=== PATIENT | female | born 1985 | race Two or more races ===

== ENCOUNTER 2017-12-31 09:24 | Emergency (ER) | payer OTHER ==
[2017-12-31 09:27] VITALS: BMI 26.4
[2017-12-31] MEDS ORDERED: SODIUM CHLORIDE 1,000 ML IV STA (09:56)
[2017-12-31] MEDS ORDERED: KETOROLAC TROMETHAMINE 30 MG/1 ML VIAL IVPUSH ONE (09:56)
[2017-12-31] MEDS ORDERED: ONDANSETRON 4 MG/2 ML VIAL IVPUSH ONE (09:56)
[2017-12-31] MEDS ORDERED: MECLIZINE HCL 25 MG TABLET (FP) PO ONE (09:56)
[2017-12-31] MEDS ORDERED: ONDANSETRON 4 MG/2 ML VIAL ONE ×2 (10:09→10:10)
[2017-12-31] MEDS ORDERED: MECLIZINE HCL 25 MG TABLET (FP) ONE (10:09)
[2017-12-31] MEDS ORDERED: KETOROLAC TROMETHAMINE 30 MG/1 ML VIAL ONE (10:09)
[2017-12-31 10:37] LABS: BASO % 0.9 % (0-2.0); EOS % 0.2 % (0-4.5); HEMATOCRIT 34.5 % (32.4-45.2); HEMOGLOBIN 11.7 GM/dL (10.7-15.3); LYMPH % 14.7 % (8-40); MCH 29.7 pg (25.7-33.7); MCHC 33.9 g/dl (32.0-36.0); MEAN CELL VOLUME 87.4 fl (80-96); MEAN PLT VOLUME 8.1 fl (7.5-11.1); MONO % 4.8 % (3.8-10.2); NEUT % 79.4 % (42.8-82.8); PLATELET COUNT 233 K/MM3 (134-434); RBC 3.95 M/mm3 (3.60-5.2); RDW 16.5 % (11.6-15.6); WHITE BLOOD COUNT 3.5 K/mm3 (4.0-10.0)
[2017-12-31 10:44] LABS: HCG,QUALITATIVE URINE NEGATIVE
[2017-12-31 10:47] LABS: URINE APPEARANCE CLEAR; URINE BILIRUBIN NEGATIVE (<2.0 mg/dL); URINE COLOR STRAW; URINE GLUCOSE (UA) NEGATIVE (NEGATIVE); URINE KETONE NEGATIVE (NEGATIVE); URINE LEUK ESTERASE NEGATIVE (NEGATIVE); URINE NITRITE NEGATIVE (NEGATIVE); URINE PROTEIN NEGATIVE (NEGATIVE); URINE UROBILINOGEN NEGATIVE mg/dL (0.2-1.0)
[2017-12-31 10:49] LABS: EPI CELLS RARE /HPF (FEW); URINE MUCUS RARE
[2017-12-31 10:52] LABS: ALK PHOS 84 U/L (45-117); ANION GAP 9 (8-16); BILIRUBIN,TOTAL 0.4 mg/dL (0.2-1.0); BLOOD UREA NITROGEN 12 mg/dL (7-18); CALCIUM 8.6 mg/dL (8.5-10.1); CHLORIDE 106 mmol/L (98-107); CO2 23 mmol/L (21-32); CREATININE 0.7 mg/dL (0.55-1.02); GLUCOSE,RANDOM 87 mg/dL (74-106); SGOT/AST 25 U/L (15-37); SGPT/ALT 22 U/L (12-78); SODIUM 138 mmol/L (136-145); TOT PROT 8.5 g/dl (6.4-8.2)
--- NOTE | 2017-12-31 10:57 | PDOC ---
History of Present Illness - General Chief Complaint: Headache Stated Complaint: HEADACHE Time Seen by Provider: 12/31/17 09:49 History Source: Patient Exam Limitations: No Limitations - History of Present Illness Initial Comments: 12/31/17 11:02 32-year-old female with no past medical history presents to the ED with complaints of intermittent dizziness for the past 2 days along with occipital throbbing pressure for the past 2 days associated with nausea without vomiting. Patient also complaining of photosensitivity without photosensitivity. Patient states has taken Tylenol and Motrin with good effect but since it returns decided come to the ER for further evaluation. Patient also states about 1 month ago fell down a flight of steps without striking her head and unsure if this triggered her symptoms. Patient denies visual changes, neck pain chest pain , shortness of breath, abdominal pain, or inability to eat. Timing/Duration: reports: waxing and waning Severity: Yes: moderate Associated Symptoms: reports: nausea/vomiting, other Past History - Travel Traveled outside of the country in the last 30 days: No - Past Medical History Allergies/Adverse Reactions: Allergies Allergy/AdvReac Type Severity Reaction Status Date / Time No Known Allergies Allergy Verified 12/31/17 09:25 Home Medications: Ambulatory Orders Cyclobenzaprine HCl [Flexeril 10 mg] 10 mg PO BID #60 tablet 12/09/17 Ibuprofen [Motrin -] 600 mg PO QID #30 tablet 12/09/17 COPD: No - Suicide/Smoking/Psychosocial Hx Smoking History: Never smoked Have you smoked in the past 12 months: No Information on smoking cessation initiated: No Hx Alcohol Use: No Drug/Substance Use Hx: No Substance Use Type: None Patient Lives Alone: No Lives with/in: spouse/SO Neuro Specific PMHX - Complaint Specific PMHX Migraine: No Review of Systems - Review of Systems Able to Perform ROS?: No Constitutional: No: Symptoms Reported HEENTM: No: Symptoms Reported Respiratory: No: Symptoms reported Cardiac (ROS): Yes: Lightheadedness ABD/GI: Yes: Nausea : No: Symptoms Reported Musculoskeletal: No: Symptoms Reported Integumentary: No: Symptoms Reported Neurological: Yes: Headache, Dizziness Hematologic/Lymphatic: No: Symptoms Reported *Physical Exam - Vital Signs Last Vital Signs Temp Pulse Resp BP Pulse Ox 99.4 F 107 H 18 108/85 100 12/31/17 09:26 12/31/17 09:26 12/31/17 09:26 12/31/17 09:26 12/31/17 09:26 - Physical Exam General Appearance: Yes: Nourished, Appropriately Dressed. No: Apparent Distress HEENT: positive: EOMI, SUNNY, TMs Normal, Pharynx Normal Neck: positive: Tender (C1), Supple Respiratory/Chest: positive: Lungs Clear, Normal Breath Sounds. negative: Respiratory Distress, Accessory Muscle Use Cardiovascular: positive: Regular Rhythm, Regular Rate (89 radial). negative: Murmur Vascular Pulses: Dorsalis-Pedis (R): 2+, Doralis-Pedis (L): 2+ Gastrointestinal/Abdominal: positive: Normal Bowel Sounds. negative: Soft, Tenderness Extremity: positive: Normal Capillary Refill Integumentary: positive: Normal Color, Warm, Moist Neurologic: positive: alterations manager II-XII NML intact, Motor Strength 5/5 (ambulatory), Other (negative Hallpike but complaining of increased dizzineness head movement) . negative: Sensory Deficit ED Treatment Course - RADIOLOGY Radiology Studies Ordered: Category Date Time Status CERVICAL SPINE CT W/O CONTR [CT] Stat CT Scan 12/31/17 09:[address] WITHOUT CONTRAST [CT] Stat CT Scan 12/31/17 09:56 Ordered Medical Decision Making - Medical Decision Making 12/31/17 11:05 Patient with complaints of occipital throbbing pressure dizziness and mild nausea for the past 3 days moderately relieved with Motrin Tylenol. Patient states fell down approximately 7 steps a month ago unsure if symptoms were triggered from the fall. Patient said did not hit her head 1 month ago. Patient exam with complaints of dizziness with standing and wall performing Hallpike maneuver. Patient had no acute findings on exam. I will rule out an intracranial pathology, electrolyte abnormality, cervical fracture secondary to C1 tenderness, and will treat for vertigo based on subjective complaints and physical findings 12/31/17 11:48 Laboratory Tests 12/31/17 12/31/17 12/31/17 09:34 10:24 10:24 WBC 3.5 L Hgb 11.7 Hct 34.5 Plt Count 233 Absolute Neuts (auto) 2.8 Neutrophils % 79.4 Sodium 138 Potassium 4.0 Chloride 106 Carbon Dioxide 23 Anion Gap 9 BUN 12 Creatinine 0.7 Random Glucose 87 Calcium 8.6 Magnesium 2.0 Total Bilirubin 0.4 AST 25 Alkaline Phosphatase 84 Total Protein 8.5 H Albumin 4.0 Urine Blood 1+ H Urine Nitrite Negative Ur Leukocyte Esterase Negative Urine WBC (Auto) <1 Urine RBC (Auto) 7 Urine HCG, Qual Negative 12/31/17 11:[address] negative for acute findings. Cervical CT shows no fracture identified. As on radiograph performs 12/09/2017 there was a reversal of the cervical lordosis probably secondary to a paravertebral muscle spasm. There is equivocal visualization of subtle edema and C3-C4 and C4-C5 interspinous spaces which could be in the base of injury involving the interspinous ligaments. MRI is recommended nonemergent versus emergent. Patient states is feeling much better and was discharged home to follow-up with neurology and her primary care doctor *DC/Admit/Observation/Transfer Diagnosis at time of Disposition: Headache Qualifiers: Headache type: unspecified Headache chronicity pattern: acute headache Intractability: not intractable Qualified Code(s): R51 - Headache - Discharge Dispostion Disposition: HOME Condition at time of disposition: Improved - Referrals Referrals: Chan Celis MD [Staff Physician] - - Patient Instructions Printed Discharge Instructions: DI for Hormonal and Tension Headaches Additional Instructions: Take Motrin 600 mg every 8 hours for discomfort. Please drink plenty of fluids and stay well-hydrated. Avoid getting up from lying to standing position. follow-up with Referred neurologist - Post Discharge Activity
[2017-12-31 12:00] VITALS: BP 100/66; PULSE 79; TEMP 98
== END 2017-12-31 12:53 | disposition home or self-care (01) ==
LOC: JER 09:24
PROC: 3E033GC Introduction of Other Therapeutic Substance into Peripheral Vein, Percutaneous Approach (ICD-10-PCS; principal; 2017-12-31)
PROC: 3E0333Z Introduction of Anti-inflammatory into Peripheral Vein, Percutaneous Approach (ICD-10-PCS; 2017-12-31)
DX: R51 Headache (principal)
CPT/HCPCS: 36415; 70450-TC; 72125-TC; 80053; 81003; 81015; 83735; 84703; 85025; 96374; 96375; 99282-25; J7030